=== PATIENT | female | born 1960 | race Caucasian/White ===

== ENCOUNTER 2017-09-09 17:06 | Emergency (ER) | payer BC ==
[2017-09-09] MEDS ORDERED: Fentanyl 100 MCG/2 ML VIAL ONE ×2 (17:17→17:49)
[2017-09-09 17:23] LABS: INR-International Normal Ratio 0.9; Prothrombin Time 11.7 SEC (12.0-14.7)
[2017-09-09 17:27] LABS: #Basophils 0.2 thou/uL (0.0-0.2); #Eosinphils 0.6 thou/uL (0.0-0.7); #Lymphocytes 2.8 thou/uL (1.20-3.40); #Monocytes 0.7 thou/uL (0.11-0.59); #Neutrophils 5.7 thou/uL (1.40-6.50); %Basophils 1.6 % (0.0-1.0); %Eosinophils 6.2 % (0.0-10.0); %Lymphocytes 28.3 % (21.0-51.0); %Monocytes 6.8 % (0.0-10.0); %Neutrophils 57.1 % (42.0-75.0); Hemoglobin 14.1 g/dL (12.0-16.0); Mean Corpuscular HGB CONC 32.2 g/dL (32.0-36.0); Mean Corpuscular Hemoglobin 30.2 pg (27.0-31.0); Mean Corpuscular Volume 94.1 fl (81.0-99.0); Platelet Count 380 thou/uL (130-400); RBC Distribution Width 11.9 % (11.5-14.5); Red Blood Cell (RBC) Count 4.66 mill/uL (4.20-5.40)
[2017-09-09 17:32] LABS: PTT 26.8 SEC (22.9-36.1)
[2017-09-09 17:33] LABS: ALT (SGPT) 35 U/L (8-55); AST (SGOT) 37 U/L (5-34); Albumin 4.1 g/dL (3.5-5.0); Alkaline Phosphatase 68 U/L (40-150); Anion Gap 14 mmol/L (10-20); BUN (Urea Nitrogen) 14 mg/dL (9.8-20.1); Bilirubin, Total 0.2 mg/dL (0.2-1.2); Calc. Creatinine Clearance 0 mL/min (70-130); Calcium 8.9 mg/dL (7.8-10.44); Carbon Dioxide 24 mmol/L (22-29); Chloride 108 mmol/L (98-107); Estimated GFR-MDRD 73; Globulin 3.1 g/dL (2.4-3.5); Glucose 134 mg/dL (70-105); Potassium 3.8 mmol/L (3.5-5.1); Protein, Total 7.2 g/dL (6.0-8.3); Sodium 142 mmol/L (136-145)
[2017-09-09] MEDS ORDERED: Sodium Chloride 0.9% 100 ML ONE (17:49)
[2017-09-09] MEDS ORDERED: CEFAZOLIN 1 GM VIAL ONE (17:49)
--- NOTE | 2017-09-09 21:52 | CT ---
CT OF THE BRAIN WITHOUT CONTRAST 09/09/17 The ventricles are normal in size with no shift. No intracranial bleeding or extra-axial hematoma wa s seen. There is no sign of acute stroke, mass or edema. There is an area of focal atrophy around th e left Sylvian fissure that I presume to be encephalomalacia from a prior stroke or traumatic event. The calvarium appears intact. The sphenoid sinus is clear as are the mastoid air cells. IMPRESSION: No acute intracranial findings. POS: HOME
--- NOTE | 2017-09-09 22:11 | CT ---
CT OF THE FACIAL BONES WITHOUT CONTRAST 09/09/17 Axial slices were acquired, then coronal and sagittal reconstructions were done in this patient who received a direct blow to the left side of the face. A large soft tissue laceration is seen on the left side of the face. Subjacent to the laceration is a fracture of the maxilla anteriorly, just to the left of midline. There is slight depression of the fracture by about 2 mm or so. I do not see significant fractures elsewhere. There is no evidence of a LeFort type injury. The paranasal sinuses are actually clear with no fluid levels seen within the m. There is some soft tissue air present around the fracture site that may just be from the lacerati on. The zygomatic arches and nasal bones appear intact, as do the orbital rims. There is some mild d eviation of the bony part of the nasal septum to the right that is obviously not acute. All visible paranasal sinuses are clear. The mandible appears intact. The pterygoid plates appear intact. IMPRESSION: Large soft tissue laceration of the face with a fracture of the maxilla just to the left of midline with slight depression. Findings from both scans called to Dr. Lamar at [id number]. POS: HOME
== END 2017-09-09 18:22 | disposition short-term general hospital (02) ==
LOC: BURERS 17:06
DX: S02.40DB Maxillary fracture, left side, initial encounter for open fracture (principal); J44.9 Chronic obstructive pulmonary disease, unspecified; F17.210 Nicotine dependence, cigarettes, uncomplicated; Z79.899 Other long term (current) drug therapy; W22.03XA Walked into furniture, initial encounter
CPT/HCPCS: 70450; 70486; 80053; 85025; 85610; 85730; 96365; 96375; J0690; J3010; J7050